=== PATIENT | male | born 1990 | race Caucasian/White ===

== ENCOUNTER 2020-05-11 21:43 | Emergency (ER) | payer SELFPAY ==
[~2020-05-11] VITALS: Ht 157.5 cm; Wt 97.1 kg
[2020-05-11 22:00] VITALS: Ht 157.5 cm; Wt 97.1 kg
[2020-05-11 22:58] LABS: BASOPHIL % 0.9 % (0.2-1.5); PLATELET COUNT 309 x10^3mcL (152-348); RED CELL DISTRIBUTION WIDTH 13.4 % (12.1-16.2)
[2020-05-11 23:15] LABS: CARBON DIOXIDE 33.1 mmol/L (21-32); CHLORIDE SERUM 101 mmol/L (98-107); CREATININE SERUM 0.9 mg/dL (0.7-1.3); GFR1 > 60 mL/min; GLUCOSE SERUM 138 mg/dL (74-106); POTASSIUM SERUM 3.4 mmol/L (3.5-5.1); SODIUM SERUM 144 mmol/L (136-145)
[2020-05-11 23:20] LABS: ALBUMIN 3.9 g/dL (3.4-5.0); ALKALINE PHOSPHATASE 90 U/L (46-116); ALT/SGPT 154 U/L (16-63); AST/SGOT 66 U/L (15-37); BILIRUBIN TOTAL 1.1 mg/dL (0.20-1.00); TOTAL PROTEIN, SERUM 7.9 g/dL (6.4-8.2)
[2020-05-12] MEDS ORDERED: NAPROXEN500 MG PO (01:06)
[2020-05-12] MEDS ORDERED: PEPCID AC20 M2 PO (01:06)
[2020-05-12] MEDS ORDERED: ZOF4 PO (01:06)
[2020-05-12 01:22] VITALS: BP 144/94
== END 2020-05-12 01:22 | disposition home or self-care (01) ==
LOC: ED 21:43
PROVIDERS: Emergency Medicine
DX: K29.70 Gastritis, unspecified, without bleeding (principal); K80.50 Calculus of bile duct without cholangitis or cholecystitis without obstruction; Z98.890 Other specified postprocedural states
CPT/HCPCS: J1885; J2405